=== PATIENT | female | born 1955 | race Caucasian/White ===

== ENCOUNTER 2017-03-25 18:26 | Emergency (ER) | payer OTHER ==
[2017-03-25 18:29] VITALS: BP 133/71; PULSE 92; RESP 12; TEMP 98.3; O2SAT 97
--- NOTE | 2017-03-25 20:10 | RADRPT ---
EXAM DATE/TIME: 03/25/2017 19:47 [place] COMPARISON: No previous studies available for comparison. INDICATIONS : Right foot pain MEDICAL HISTORY : None. SURGICAL HISTORY : None. ENCOUNTER: Initial ACUITY: 1 day PAIN SCORE: 8/10 LOCATION: Right foot FINDINGS: Three view examination of the right foot demonstrates no soft tissue swelling, dislocation, or fractu re. The tarsal bones appear intact. The interphalangeal and metatarsophalangeal joints are intact. The calcaneus is intact. Bony mineralization is normal. CONCLUSION: 1. Plantar calcaneal and posterior calcaneal enthesophyte formation. Leoncio Covington MD on March 25, 2017 at 20:07 Board Certified Radiologist. This report was verified electronically.
[2017-03-25] MEDS ORDERED: ATOR40TA16 PO (20:20)
[2017-03-25] MEDS ORDERED: ASPI-516 CHEW (20:20)
[2017-03-25] MEDS ORDERED: CYCL10TA PO (20:20)
[2017-03-25] MEDS ORDERED: NAPR500 PO (20:22)
--- NOTE | 2017-03-25 20:29 | PD ---
HPI Chief Complaint: Musculoskeletal Complaint Time Seen by Provider: 20:12 Travel History International Travel<30 days: No Contact w/Intl Traveler<30days: No Traveled to known affect area: No History of Present Illness HPI 61-year-old female presents to emergency Department with complaints of right foot pain. She states that she felt something pull and pop in the arch of her foot earlier this evening when she was attempting to run. She states that the pain goes across the arch of her foot down to her toes. She states it also radiates to her ankle. Pain is moderate at rest but is severe when she is attempting to weight-bear. Patient has improvement of her pain with elevation and ice. She denies any sensory changes. She did not fall. No neck or back pain. She states that she's had problems with heel spurs in the past. [facility] Past Medical History Narrative Medical Hypercholesterolemia Cardiovascular Problems: Yes (IRREGULAR) Diminished Hearing: No Tetanus Vaccination: Unknown ?: Not Social History Alcohol Use: No Tobacco Use: No Substance Use: No Allergies-Medications (Allergen,Severity, Reaction): Coded Allergies: sulfamethoxazole (Verified Allergy, Unknown, 03/25/17) tetracycline (Verified Allergy, Unknown, 03/25/17) trimethoprim (Verified Allergy, Unknown, 03/25/17) naproxen (Verified Adverse Reaction, Severe, Nausea/Vomiting, 03/25/17) Reported Meds & Prescriptions Reported Meds & Active Scripts Active Deltasone (Prednisone) 20 Mg Tab 20 Mg PO BID Reported Atorvastatin (Atorvastatin Calcium) 40 Mg Tab 40 Mg PO DAILY Aspirin 81 Mg Chew 81 Mg CHEW DAILY Flexeril (Cyclobenzaprine HCl) 10 Mg Tab 10 Mg PO TID Review of Systems General / Constitutional: No: Fever Eyes: No: Visual changes HENT: No: Headaches Cardiovascular: No: Chest Pain or Discomfort Respiratory: No: Shortness of Breath Gastrointestinal: No: Abdominal Pain Genitourinary: No: Dysuria Musculoskeletal: Positive: Arthralgias, Limited ROM, Cramping, Pain, No: Myalgias Skin: No Rash Neurologic: No: Weakness Psychiatric: No: Depression Endocrine: No: Polydipsia Hematologic/Lymphatic: No: Easy Bruising Physical Exam Narrative GENERAL: Well-developed, well-nourished in no acute distress. Nontoxic appearing. HEAD: Normocephalic, atraumatic. EYES: Pupils equal round and reactive. Extraocular motions intact. No scleral icterus. No injection or drainage. ENT: TMs clear without erythema. The external auditory canals clear. Nose: clear . Posterior pharynx is pink and moist. No tonsillar edema or exudate. Uvula midline. Airway patent. NECK: Trachea midline.Supple, nontender, moves head freely. No central bony tenderness or spasm. CARDIOVASCULAR: Regular rate and rhythm without murmurs, gallops, or rubs. RESPIRATORY: Clear to auscultation. Breath sounds equal bilaterally. No wheezes , rales, or rhonchi. GASTROINTESTINAL: Abdomen soft, non-tender, nondistended. No hepato-splenomegaly , or palpable masses. No guarding. EXTREMITIES: No clubbing, cyanosis, or edema. No joint tenderness, effusion, or edema noted. Examination of the right foot reveals tenderness across the plantar arch. There is no erythema, warmth or edema. The skin is intact. There is no pain in the toes, heel, Achilles, ankle. Remainder of the extremities are unremarkable. The left lower extremity as well as upper extremities are without localizing bony tenderness or deformity. BACK: Nontender without deformity or crepitance. No flank tenderness. Data Data Last Documented VS Vital Signs Date Time Temp Pulse Resp B/P (MAP) Pulse Ox O2 Delivery O2 Flow Rate FiO2 03/25/17 20:20 03/25/17 18:29 98.3 92 12 97 Orders Orders Foot, Complete (Umb3pmg) (03/25/17 ) Naproxen (Naprosyn) (03/25/17 20:30) Ed Discharge Order (03/25/17 20:22) Ice/Cold Pack (03/25/17 20:22) Splint Or Brace Apply/Monitor (03/25/17 20:22) Crutches (03/25/17 20:22) Prednisone (Deltasone) (03/25/17 20:45) Acetaminophen (Tylenol) (03/25/17 20:45) MDM Medical Decision Making Medical Screen Exam Complete: Yes Emergency Medical Condition: Yes Medical Record Reviewed: Yes Interpretation(s) Last 24 hours Impressions Foot X-Ray 03/25/17 0000 Signed Impressions: Service Date/Time: Saturday, March 25, 2017 19:47 - CONCLUSION: 1. Plantar calcaneal and posterior calcaneal enthesophyte formation. Leoncio Covington MD Differential Diagnosis MDM: High Differential diagnoses: Fracture, sprain, strain, dislocation, contusion, neurovascular injury Narrative Course X-ray is negative for bony injury of the foot. Patient's given Hay wrap, crutches, ice, Deltasone 20 mg by mouth, and Tylenol 650 mg by mouth. The patient states that she cannot take Naprosyn or ibuprofen because they upset her stomach. We will put her on Deltasone and have her take Tylenol in addition at home. This is right foot sprain Diagnosis Primary Impression: Right foot sprain Qualified Codes: S93.601A - Unspecified sprain of right foot, initial encounter Patient Instructions: General Instructions Additional Instructions: Rest. Elevation. Ice packs for the next 3 days. Hay wrap and crutches. No weight-bearing and then progress to weight-bearing as tolerated. Medications as directed Follow-up with an orthopedist or your doctor in one week. Return to the ER if any problems Med/Other Pt SpecificInfo: Prescription(s) given Scripts Prednisone (Deltasone) 20 Mg Tab 20 MG PO BID, #10 TAB 0 Refills Prov: Rick Hoyos MD 03/25/17 Disposition: 01 DISCHARGE HOME Condition: Stable Keyur Rascon Mar 25, 2017 20:29
[2017-03-25] MEDS ORDERED: NAPROXEN 500 MG TAB PO ONE (20:30)
[2017-03-25] MEDS ORDERED: PRED-503 PO (20:38)
[2017-03-25] MEDS ORDERED: predniSONE 20 MG TAB PO ONE (20:45)
[2017-03-25] MEDS ORDERED: ACETAMINOPHEN 325 MG TAB PO ONE (20:45)
== END 2017-03-25 21:04 | disposition home or self-care (01) ==
LOC: NEPD 18:26
DX: S93.601A Unspecified sprain of right foot, initial encounter (principal); Y93.02 Activity, running; E78.00 Pure hypercholesterolemia, unspecified
CPT/HCPCS: 73630; 99283; E0113; J7512